=== PATIENT | female | born 1940 | race American Indian/Alaskan Native ===

== ENCOUNTER 2019-08-14 14:15 | Emergency (ER) | payer MEDICARE ==
--- NOTE | 2019-08-14 14:46 | Event Note ---
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 Further treatment and workup at subsequent clinical providers discretion. Patient/guardian urged not to elope from the ED as their condition may be serious if not clinically assessed and managed. Initial orders include: XR
--- NOTE | 2019-08-14 15:31 | XRay Report ---
RIGHT SHOULDER 3 VIEWS INDICATION / CLINICAL INFORMATION: pain, no injury, hx of arthritis COMPARISON: None available. FINDINGS: BONES / JOINT(S): No acute fracture or subluxation. 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 SOFT TISSUES: No significant abnormality. ADDITIONAL FINDINGS: None. Signer Name: Jairo Olmstead MD Signed: 08/14/2019 3:26 PM Workstation Name: [id number]
--- NOTE | 2019-08-14 18:31 | Emergency Department Report ---
Upper Extremity - HPI Chief Complaint: Extremity Injury, Upper Stated Complaint: RT ARM PAIN Time Seen by Provider: 08/14/19 14:43 Other History: Patient is a 78-year-old female presents emergency room with complaints of chronic right shoulder pain that began worsening 2 days ago. she denies any fall or injury. she denies any numbness or weakness. she states her PCP diagnosed her with arthritis and she has been taking meloxicam. she has not seen an orthopedic doctor for this complaint. PMHx thyroid nodule, HTN, and chronic knee pain. she denies any known allergies. ED Review of Systems ROS: Stated complaint: RT ARM PAIN Other details as noted in HPI Comment: All other systems reviewed and negative ED Past Medical Hx - Past Medical History Hx Hypertension: Yes Hx Arthritis: Yes Additional medical history: a - Social History Smoking Status: Never Smoker - Medications Home Medications: Home Medications Medication Instructions Recorded Confirmed Last Taken Type HYDROcodone/APAP 5-325 [[place] 1 each PO Q8H PRN #21 tablet 02/04/14 Unknown Rx 5-325 mg TAB] Probenecid/Colchicine 1 each PO DAILY #10 tablet 02/04/14 Unknown Rx [Probenecid-Colchicine Tab] predniSONE [Deltasone] 20 mg PO BID #10 tab 02/04/14 Unknown Rx Tizanidine HCl [Zanaflex 2mg CAP] 2 mg PO QHS PRN #12 capsule 08/14/19 Unknown Rx Upper Extremity Exam - Exam General: Vital signs noted. No distress. Alert and acting appropriately. Shoulder Exam: Yes Shoulder Tenderness (mild TTP over the right deltoid, no bony shoulder TTP, no AC joint tenderness), No Clavicle Tenderness, No Normal Range of Motion in Shoulder (mild discomfort upon full flexion of the right shoulder), No Shoulder Deformity, No AC Joint Tenderness Arm Exam: No Arm/Humerus Tenderness, No Arm Deformity Elbow: Yes Normal Range of Motion in Elbow, No Elbow Tenderness, No Elbow Deformity Forearm: No Forearm Tenderness, No Forearm Deformity, No Pain with Pronation, No Pain with Supination Wrist: Yes Normal ROM in Wrist, No Wrist Tenderness, No Wrist Deformity, No Snuffbox Tenderness, No Pain with Axial Thumb Compression Hand: Yes Normal ROM in Digit(s), No Hand Tenderness, No Hand Deformity, No Digit Tenderness, No Digit(s) Deformity, No Tendon Dysfunction CMS Exam: Yes Normal Distal Pulses, Yes Normal Capillary Refill, Yes Normal Distal Sensation, No Broken Skin ED Course Vital Signs 08/14/19 14:43 Temperature 98.3 F Pulse Rate 92 H Respiratory 16 Rate Blood Pressure 157/79 O2 Sat by Pulse 99 Oximetry ED Medical Decision Making - Radiology Data Radiology results: report reviewed RIGHT SHOULDER 3 VIEWS INDICATION / CLINICAL INFORMATION: pain, no injury, hx of arthritis COMPARISON: None available. FINDINGS: BONES / JOINT(S): No acute fracture or subluxation. 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 SOFT TISSUES: No significant abnormality. ADDITIONAL FINDINGS: None. Signer Name: Jairo Olmstead MD Signed: 08/14/2019 3:26 PM Workstation Name: [id number] Transcribed By: ES Dictated By: Jairo Olmstead MD Electronically Authenticated By: Jairo Olmstead MD Signed Date/Time: 08/14/19 1526 DD/ 25 TD/TT: - Medical Decision Making Patient is a 78-year-old female presents emergency room with complaints of chronic right shoulder pain that began worsening 2 days ago. she denies any fall or injury. she denies any numbness or weakness. she states her PCP diagnosed her with arthritis and she has been taking meloxicam. she has not seen an orthopedic doctor for this complaint. PMHx thyroid nodule, HTN, and chronic knee pain. she denies any known allergies. VSS. XR left shoulder: No acute fracture or subluxation. 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 SOFT TISSUES: No significant abnormality. on exam: mild TTP over the right deltoid, no bony shoulder TTP, no AC joint tenderness, mild discomfort upon full flexion of the right shoulder. pt given prescription for zanaflex. advised pt to please take medication as prescribed as needed. Only take medication right before your about to get in bed. Do not drive or operate heavy machinery or walk around while taking the medication due to potential for drowsiness and falls. May use ice pack, heating pad, rest, epsom salt bath. May also take Tylenol as needed for discomfort. Follow-up with an orthopedic doctor in the next 2-3 days. Return to the emergency room for any new or worsening symptoms. - Differential Diagnosis strain, sprain, fx, dislocation, rotator cuff injury, DJD, arthritis Critical care attestation.: If time is entered above; I have spent that time in minutes in the direct care of this critically ill patient, excluding procedure time. ED Disposition Clinical Impression: Right shoulder pain Qualifiers: Chronicity: chronic Qualified Code(s): M25.511 - Pain in right shoulder Disposition: DC- TO HOME OR SELFCARE Is pt being admited?: No Does the pt Need Aspirin: No Condition: Stable Instructions: Muscle Strain (ED) Additional Instructions: please take medication as prescribed as needed. Only take medication right before your about to get in bed. Do not drive or operate heavy machinery or walk around while taking the medication due to potential for drowsiness and falls. May use ice pack, heating pad, rest, epsom salt bath. May also take Tylenol as needed for discomfort. Follow-up with an orthopedic doctor in the next 2-3 days. Return to the emergency room for any new or worsening symptoms. Prescriptions: Tizanidine HCl [Zanaflex 2mg CAP] 2 mg PO QHS PRN #12 capsule PRN Reason: Muscle Spasm Referrals: [facility] [Provider Group] - 2-3 Days WOO TEIXEIRA MD [Staff Physician] - 2-3 Days Time of Disposition: 18:29 Print Language: AMHARIC
[2019-08-14 18:43] VITALS: BP 150/68
== END 2019-08-14 18:42 | disposition home or self-care (01) ==
LOC: ED 14:15
DX: M25.511 Pain in right shoulder (principal); I10 Essential (primary) hypertension; M19.90 Unspecified osteoarthritis, unspecified site; Z79.899 Other long term (current) drug therapy